=== PATIENT | female | born 2005 | race Two or more races ===

== ENCOUNTER 2025-03-07 15:39 | Observation (INO) ==
--- NOTE | 2025-03-07 16:33 | Emergency Department Note ---
Impression & Plan Lumbar radiculopathy, Weakness of both lower extremities, Bulging of lumbar intervertebral disc ED Provider Note CHIEF COMPLAINT: Back pain HISTORY OF PRESENTING ILLNESS: This 20-year-old female patient presents to the emergency department for evaluation of low back pain radiating to her bilateral legs. The pain is worse in the left leg. She has a history of this chronically, but states that has been worse over the past week. Today she had an episode that caused such bad muscle spasm that she was unable to move her legs at all for 2 hrs. She is able to move her legs again, but still very painful and her legs still feel weak. She denies any injury or trauma. She has a history of sciatica and her left leg is shorter than the right, but no recent imaging. She took 4 ibuprofen at 8 AM this morning without improvement of her symptoms. Denies any loss of control of their bowel or bladder functions. Denies any numbness of their legs, but has had a lot of intermittent tingling. Denies any saddle paresthesias. Denies abdominal pain, nausea, or vomiting. Denies urinary symptoms or changes in their BMs. LMP 3 weeks ago. She denies concern for . REVIEW OF SYSTEMS: See HPI for pertinent positives and pertinent negatives. ALLERGIES: Blue dye from Leach-Hoffman cereal MEDICATIONS: Metformin, Hydroxyzine prn PAST MEDICAL HISTORY: Insomnia PHYSICAL EXAM: VITALS: Vitals are noted on the nurse's note and reviewed by myself. GENERAL: Appears in pain, but non toxic in appearance and in no acute distress. Non-diaphoretic. SKIN: The skin of the back was without obvious rashes, erythema, edema, pilonidal abscess, or bruising. HEAD: Normocephalic atraumatic. EYES: Pupils equal round and reactive to light and accommodation. The Extraocular movements intact. NECK: Supple without nuchal rigidity. No cervical spine tenderness. No paraspinous muscle tenderness. No lymphadenopathy. HEART: Regular rate and rhythm without murmurs gallops or rubs. LUNGS: Clear to auscultation bilaterally without wheezes, rales or rhonchi. ABDOMEN: Positive bowel sounds x 4. Normal tympanic percussion. Soft, nontender, without masses or organomegaly. Gamble sign negative. MUSCULOSKELETAL: There is tenderness over the lumbar spinous processes. There is also tenderness over the paraspinous muscles bilaterally. There is no tenderness over the thoracic spine or paraspinous muscles. There are muscle spasms present. The patient is slow to move around with maximum tenderness with flexion of the spine. Positive straight leg raise test L>R. The patient has trouble moving both of her legs due to pain, but worse on the left. Strength 3/5 on the left and 4/5 on the right. Repeat exam after the pain medication, steroids, and Valium showed an improvement in her strength to 4/5 on the left and 5/5 on the right. Deep tendon reflexes 2+ in the lower extremities. Dorsalis pedis and posterior tibial pulse 2+ and equal bilaterally. NEURO: Patient was alert and oriented to person place and time. Decreased sensation to light and sharp touch of the left lower extremity compared to the right per patient, but she is able to feel light and sharp touch. No focal neurological deficits. DIFFERENTIAL DIAGNOSIS: Differential diagnosis includes fracture, subluxation, cauda equina syndrome, cord compression, disc herniation, muscle spasm, lumbar strain, epidural abscess, discitis, malignancy, transverse myelitis, urinary tract infection, colitis, diverticulitis, kidney stone, among others. ED COURSE AND MEDICAL DECISION MAKING: MEDICATIONS GIVEN: Toradol 15 mg IM, Valium 5 mg IM, Decadron 10 mg IM. Tylenol 1000 mg IV. Normal saline solution at 125 mL an hour. INTERPRETATION OF LABS: I interpreted the labs with full lab results as below in the lab section of this note. Laboratory results pertinent to the emergent complaint are discussed in the MDM section below. The patient was advised to follow up with their PCP and/or specialist(s) for further outpatient monitoring and management of any abnormal results. INTERPRETATION OF IMAGING: Imaging studies were interpreted by myself and read by radiology as per the imaging section of this note. The patient was advised to follow up with their PCP and/or specialist(s) for further outpatient management of any non-emergent abnormal findings. CT scan of the lumbar spine without contrast shows no acute fracture or subluxation. There is spinal stenosis at L4/5 and L5/S1 with disc herniations that may compress the traversing nerve roots. MRI of the lumbar spine without contrast showed: 1. Moderate disc degeneration at L4-5 and L5-S1 with disc extrusion or disc bulge causing a moderate right and mild left subarticular recess stenosis at L4-5 and a mild right and moderate left subarticular recess stenosis L5-S1 with mild impingement of the transiting right L5 and left S1 nerve roots respectively. 2. There is a severe spinal canal stenosis at L4-5. 3. There is a mild right L5-S1 foraminal stenosis without evidence of neural impingement. 4. No evidence of fracture, infection, tumor or arachnoiditis. CONSULTATIONS: Dr. Flores of spinal surgery. On-call hospitalist MDM SUMMARY: I examined the patient. The patient has a history of chronic low back pain, but symptoms became significantly worse over the past week. Today she had an episode where she could not move her legs at all for 2 hours. She is still weak in her left greater than right leg, but starting to improve. No loss of control of her bowel or bladder functions. Intermittent tingling, but denies true numbness. No direct injury or trauma to the back. On exam, the patient did have weakness of the left leg compared to the right and she was having difficulty moving her legs and difficulty standing. She did have sensation to light and sharp touch, but decreased in the left leg compared to the right per patient. Reflexes were still present. Pulses were normal. The patient was given Toradol 15 mg IM and Valium 5 mg IM with some improvement of her symptoms. CT scan of the lumbar spine without contrast shows no acute fracture or subluxation. There is spinal stenosis at L4/5 and L5/S1 with disc herniations that may compress the traversing nerve roots. The patient's weakness in her legs had improved somewhat, but she was still weak in the left leg and had continued trouble moving her legs and standing without significant difficulty. Based on the patient's subjective history, physical exam, and CT scan findings, an MRI was obtained. The patient was also given Decadron 10 mg IM. MRI of the lumbar spine without contrast showed the significant bulging disks with impingement as above. Given the patient's earlier symptoms today as well as her objective findings on exam, I spoke with Dr. Flores of spinal surgery. He stated that the patient does not require emergent surgery, but may require intervention in the near future. He stated that the patient would benefit from high-dose steroids. He recommended admission for IV steroids if the patient were agreeable. However, if the patient wanted to be discharged home with outpatient follow-up, she would need to be on a high dose steroid taper with short-term follow-up. I spoke with the patient about the findings and recommendations. The patient states that she is still having trouble ambulating and moving her legs and does not know how much help she would have at home. The patient would like to be admitted for the IV steroids, PT evaluation, and spinal surgical evaluation. An IV lock was placed and labs were drawn due to the patient's admission. The patient was given Tylenol 1000 mg IV for some additional pain, but she declined any stronger pain medication at this time. She was started on maintenance fluids as well. White blood cell count was elevated at 12.74. This may be secondary to the steroids and pain, but can be monitored closely during admission. Hemoglobin and platelet count were normal. Glucose 125, but CMP otherwise without concerning abnormalities. I spoke with the on-call hospitalist who agreed to admit the patient for further evaluation and treatment. Please refer to their dictation for further details. The patient's care was transferred in stable condition. DIAGNOSIS: Lumbar radiculopathy Weakness of the bilateral lower extremities Lumbar bulging disks Past Med/Surg History Problem List (Updated 03/08/25 @ 02:03 by Lorie Mccord DO) Bulging lumbar disc Acute on chronic back pain Postural imbalance Low back pain with left-sided sciatica Leg length discrepancy Left femur measures 52 cm, right femur measures 53.2 cm Auditory hallucinations Medical History Vitamin D deficiency Panic attacks Lipoprotein deficiency HDL low in May 2019 Hypertriglyceridemia Animal dander allergy BMI (body mass index), pediatric, greater than 99% for age Elevated fasting insulin level with normal glucose Lumbar back pain with radiculopathy affecting right lower extremity Surgical History No history of previous surgery Family History Father Heart disease Myocardial infarction Mother Anxiety Diabetes type 2 DM Family/Other Heart disease Cousin, passed at age 33 Denies family history of Ovarian cancer Prostate cancer Breast cancer Colorectal cancer Social History Smoking Status: Never smoker Second Hand Exposure: No; Do You Dip or Chew Tobacco: No; Hx Alcohol Use: No Hx Substance Use: No Preferred Language: Polish Communication Ability: Effective Visual Impairment: No Limitations Hearing Ability: Normal Housing Installer Required: No marital status: Single Current Living Situation: Alone current occupational status: employed current occupation: [employer] Feels Safe at Home: Yes Childhood Exposure to Second-Hand Smoke: No Diet: vegetarian Dental Care, Regularly: Yes Physical Activity Frequency: 1-2 Times per Week Seatbelt Use: always Sunscreen Use: Yes Assistive Devices: Contacts and Glasses Allergies Allergies Allergy/AdvReac Type Severity Reaction Status Date / Time blue dye Allergy Severe Anaphylaxis Verified 03/08/25 00:41 LEACH-HOFFMAN CEREAL Allergy Severe Anaphylaxis Uncoded 03/08/25 00:41 Home Meds Home Medications Medication Instructions Recorded Confirmed multivitamin 1 tab PO DAILY 01/10/23 03/08/25 Lactobacillus acidophilus 10 10,000 mmu cells PO DAILY 03/08/25 03/08/25 billion cell capsule (Probiotic) biotin 10 mg tablet 10 mg PO DAILY 03/08/25 03/08/25 hydroxyzine HCl 25 mg tablet 25 mg PO HS PRN Insomnia 03/08/25 03/08/25 lysine 500 mg tablet (L-Lysine) 500 mg PO DAILY 03/08/25 03/08/25 metformin 500 mg tablet 500 mg PO DAILY 03/08/25 03/08/25 Previous Rx's Medication Instructions Recorded L Heel lift #3 ea 07/19/20 Results & Data (ED) Vital Signs Vital Signs - 24 hr 03/07/25 15:47 03/07/25 18:50 03/08/25 00:34 Temperature 36.6 C Temperature Source Temporal Artery Scan Pulse Rate 78 Pulse Rate [Finger] 67 72 Respiratory Rate 20 21 19 Respiratory Effort / Characteristics Non-Labored Spontaneous Respiratory Depth Normal Respiratory Pattern Regular Blood Pressure 127/84 Blood Pressure [Right Arm] 107/67 110/76 Blood Pressure Mean 98 Blood Pressure Mean [Right Arm] 80 87 Pulse Oximetry 97 97 97 Oxygen Delivery Method Room Air Room Air Room Air Sepsis Recent Fever Within 48 Hours No Sepsis New/Unexplained Change in Mental Status N/A Sepsis Action Taken by Nursing No Action Required Laboratory Data 03/08/25 00:43 03/08/25 00:43 Lab Results 03/08/25 Range/Units 00:43 WBC 12.74 H (4.8-10.8) K/ul RBC 4.50 (4.20-5.40) M/uL Hgb 12.8 (12.0-16.0) g/dl Hct 38.2 (37.0-47.0) % MCV 84.9 (80.0-100.0) fL MCH 28.4 (25.0-34.0) pg MCHC 33.5 (32.0-36.0) g/dL RDW Std Deviation 42.5 (36.4-46.3) fL RDW Coeff of Bull 13.7 (11.5-14.5) % Plt Count 320 (130-400) K/uL MPV 11.4 (9.4-12.4) fL Immature Gran % (Auto) 0.5 % Neut % (Auto) 88.4 % Lymph % (Auto) 10.4 % Larue % (Auto) 0.5 % Eos % (Auto) 0.0 % Baso % (Auto) 0.2 % Neut # (Auto) 11.26 H (1.40-6.50) K/uL Lymph # (Auto) 1.33 (1.20-3.40) K/uL Larue # (Auto) 0.06 L (0.11-0.59) K/uL Eos # (Auto) 0.00 (0.00-0.50) K/uL Baso # (Auto) 0.03 (0.00-0.20) K/uL Immature Gran # (Auto) 0.06 (0.01-0.20) K/uL Sodium 137 (136-145) mmol/L Potassium 4.1 (3.5-5.1) mmol/L Chloride 107 (98-107) mmol/L Carbon Dioxide 19 L (21-32) mmol/L Anion Gap 11 (3-11) BUN 10 (6-23) mg/dl Creatinine 0.72 (0.6-1.2) mg/dl Est Cr Clr Drug Dosing Not Reportable eGFR 121.16 BUN/Creatinine Ratio 13.9 (10-20) Glucose 125 H (70-99(Fasting)) mg/dl Calcium 9.0 (8.6-10.3) mg/dl Total Bilirubin 0.4 (0.2-1.0) mg/dl AST 14 (13-39) U/L ALT 19 (7-52) U/L Alkaline Phosphatase 94 (34-104) U/L Total Protein 7.6 (6.0-8.3) gm/dl Albumin 4.3 (3.4-5.0) gm/dl Globulin 3.3 (2.5-4.0) gm/dl Albumin/Globulin Ratio 1.3 (0.9-2) Administered Medications Sodium Chloride (Nss) 1,000 mls @ 125 mls/hr IV .Q8H RIN Stop: 03/11/25 00:44 Last Admin: 03/08/25 00:47 Dose: 125 mls/hr Documented By: ASW Discontinued Medications Dexamethasone Sodium Phosphate (DexamethasonePf 10 Mg/Ml Vial) 10 mg IM NOW ONE Stop: 03/07/25 18:26 Last Admin: 03/07/25 18:32 Dose: 10 mg Documented By: KATIE Diazepam (Diazepam 5 Mg/Ml 10ml Vial) 5 mg IM NOW STA Stop: 03/07/25 16:54 Last Admin: 03/07/25 17:03 Dose: 5 mg Documented By: KATIE Acetaminophen (Ofirmev) 1,000 mg in 100 mls @ 400 mls/hr IV NOW STA Stop: 03/08/25 00:52 Last Infusion: 03/08/25 01:11 Dose: Infused Documented By: Admin: 03/08/25 00:47 Dose: 400 mls/hr Documented By: JOSHUA Ketorolac Tromethamine (Ketorolac Tromethamine 15 Mg/Ml Vial) 15 mg IM NOW STA Stop: 03/07/25 16:54 Last Admin: 03/07/25 17:03 Dose: 15 mg Documented By: KATIE Imaging Data Radiologist's Impression: Lumbar Spine CT 03/07/25 16:53 Clinical history: Pain Technique: Axial computed tomography images were obtained of the lumbar spine without intravenous contrast. Sagittal and coronal reconstructions were obtained Findings: No fracture is identified. No listhesis is seen. No focal osseous lesion is evident. There is no definite sign of osteomyelitis At L1-2, no disc herniation is identified. There is no spinal stenosis. The neural foramen are patent At L2-3, no disc herniation is identified. There is no spinal stenosis. The neural foramen are patent At L3-4, there is a mild disc bulge. There is no spinal stenosis. The neural foramen are patent At L4-5, there is severe spinal stenosis due to a disc bulge and a central disc herniation. There is mild left neural foramen narrowing At L5-S1, there is spinal stenosis due to a disc bulge and a central disc herniation. There is mild left neural foramen narrowing The visualized soft tissues of the abdomen and pelvis appear unremarkable Impression: 1. No definite lumbar spine fracture 2. Spinal stenosis at L4-5 and L5-S1 with disc herniations that may compress the traversing nerve roots Electronically signed by Christiano Fonseca 03-07-2025 5:43 PM Lumbar Spine MRI 03/07/25 18:25 Exam(s): MRI L SPINE Without Contrast EXAM: MR Lumbar Spine Without Intravenous Contrast CLINICAL HISTORY: Reason for exam: Low back pain, weakness/numbness L>R legs, abn CT. TECHNIQUE: Magnetic resonance images of the lumbar spine without intravenous contrast in multiple planes. COMPARISON: Prior CT scan of lumbar spine from March 07, 2025. FINDINGS: Vertebrae: There are 5 lumbar type vertebral bodies with a mild levoscoliosis and shallow lumbar lordosis. There is no vertebral body height and alignment. The bone marrow signal is heterogeneous with reactive endplate changes. No acute fracture. Spinal cord: The conus is normal size, shape and signal characteristics, terminating at T12-L1. Soft tissues: Moderate atrophy of the iliopsoas, paraspinous or spinous musculature. The aorta and IVC flow voids are intact. The visualized kidneys are unremarkable. DISCS/SPINAL CANAL/NEURAL FORAMINA: L1-L2: Unremarkable. No significant disc disease. No stenosis. L2-L3: Unremarkable. No significant disc disease. No stenosis. L3-L4: Unremarkable. No significant disc disease. No stenosis. L4-L5: Moderate disc degeneration with right paracentral caudally dissecting disc extrusion measuring 9.9 mm (CC) by 11.4 mm (mL) by 5.7 mm (AP) causing moderate right and mild left subarticular recess stenosis with mild impingement of the transiting right L5 nerve root and the severe spinal stenosis with thecal sac area measuring 0.4 cm². L5-S1: Moderate disc degeneration with annular disc bulge causing mild right and moderate left subarticular recess stenosis with mild impingement of the transiting left S1 nerve. There is disc and osteophyte extend to the neuroforamina causing a mild right stenosis without evidence of impingement. IMPRESSION: 1. Moderate disc degeneration at L4-5 and L5-S1 with disc extrusion or disc bulge causing a moderate right and mild left subarticular recess stenosis at L4-5 and a mild right and moderate left subarticular recess stenosis L5-S1 with mild impingement of the transiting right L5 and left S1 nerve roots respectively. 2. There is a severe spinal canal stenosis at L4-5. 3. There is a mild right L5-S1 foraminal stenosis without evidence of neural impingement. 4. No evidence of fracture, infection, tumor or arachnoiditis. Electronically signed by: Erlinda Jerome MD 03/07/25 22:46 PM Discharge Plan Visit Data Chief Complaint: Back Injury/Pain Stated Complaint: BACK PAIN/INJURY, ON/OFF PARALYSIS ED Provider: Malika Ferguson ED Midlevel Provider: Yadi Skinner Discharge Problem: Lumbar radiculopathy, Weakness of both lower extremities, Bulging of lumbar intervertebral disc Patient Disposition: Admitted As Inpatient Condition: Fair Discharge Instructions Interventions: ED Discharge Assessment Last Done: 03/08/25 01:56 Forms Stand Alone Forms: [facility], Important Visit Information Prescriptions Prescriptions: No Action (DME) L Heel lift see below See Rx Instructions .Route .MEDSUPPLY Qty: 3 0RF Rx Instructions: Dispense one 6mm heel lift, one 8mm heel lift, one 1cm heel lift Wear 6mm lift x2-3 wks, then 8mm x2wks, then 10 mm. multivitamin Tablet 1 tab PO DAILY biotin 10 mg Tablet 10 mg PO DAILY metformin 500 mg tablet 500 mg PO DAILY hydroxyzine HCl 25 mg tablet 25 mg PO HS PRN (Reason: Insomnia) lysine [L-Lysine] 500 mg Tablet 500 mg PO DAILY Probiotic 10 billion cell Capsule 10,000 mmu cells PO DAILY Referrals Referrals: Deandre Warren, [Primary Care Provider] -
[2025-03-07] MEDS: KETOROLAC TROMETHAMINE 15 MG/ML VIAL IM STA (17:03)
[2025-03-07] MEDS: diazePAM 5 MG/ML 10ML VIAL IM STA (17:03)
--- NOTE | 2025-03-07 17:43 | CT Scan Report ---
Clinical history: Pain Technique: Axial computed tomography images were obtained of the lumbar spine without intravenous contrast. Sagittal and coronal reconstructions were obtained Findings: No fracture is identified. No listhesis is seen. No focal osseous lesion is evident. There is no definite sign of osteomyelitis At L1-2, no disc herniation is identified. There is no spinal stenosis. The neural foramen are patent At L2-3, no disc herniation is identified. There is no spinal stenosis. The neural foramen are patent At L3-4, there is a mild disc bulge. There is no spinal stenosis. The neural foramen are patent At L4-5, there is severe spinal stenosis due to a disc bulge and a central disc herniation. There is mild left neural foramen narrowing At L5-S1, there is spinal stenosis due to a disc bulge and a central disc herniation. There is mild left neural foramen narrowing The visualized soft tissues of the abdomen and pelvis appear unremarkable Impression: 1. No definite lumbar spine fracture 2. Spinal stenosis at L4-5 and L5-S1 with disc herniations that may compress the traversing nerve roots Electronically signed by Christiano Fonseca 03-07-2025 5:43 PM
[2025-03-07] MEDS: dexAMETHasone**PF** 10 MG/ML VIAL IM ONE (18:32)
--- NOTE | 2025-03-07 22:47 | Magnetic Resonance Report ---
Exam(s): MRI L SPINE Without Contrast EXAM: MR Lumbar Spine Without Intravenous Contrast CLINICAL HISTORY: Reason for exam: Low back pain, weakness/numbness L>R legs, abn CT. TECHNIQUE: Magnetic resonance images of the lumbar spine without intravenous contrast in multiple planes. COMPARISON: Prior CT scan of lumbar spine from March 07, 2025. FINDINGS: Vertebrae: There are 5 lumbar type vertebral bodies with a mild levoscoliosis and shallow lumbar lordosis. There is no vertebral body height and alignment. The bone marrow signal is heterogeneous with reactive endplate changes. No acute fracture. Spinal cord: The conus is normal size, shape and signal characteristics, terminating at T12-L1. Soft tissues: Moderate atrophy of the iliopsoas, paraspinous or spinous musculature. The aorta and IVC flow voids are intact. The visualized kidneys are unremarkable. DISCS/SPINAL CANAL/NEURAL FORAMINA: L1-L2: Unremarkable. No significant disc disease. No stenosis. L2-L3: Unremarkable. No significant disc disease. No stenosis. L3-L4: Unremarkable. No significant disc disease. No stenosis. L4-L5: Moderate disc degeneration with right paracentral caudally dissecting disc extrusion measuring 9.9 mm (CC) by 11.4 mm (mL) by 5.7 mm (AP) causing moderate right and mild left subarticular recess stenosis with mild impingement of the transiting right L5 nerve root and the severe spinal stenosis with thecal sac area measuring 0.4 cm². L5-S1: Moderate disc degeneration with annular disc bulge causing mild right and moderate left subarticular recess stenosis with mild impingement of the transiting left S1 nerve. There is disc and osteophyte extend to the neuroforamina causing a mild right stenosis without evidence of impingement. IMPRESSION: 1. Moderate disc degeneration at L4-5 and L5-S1 with disc extrusion or disc bulge causing a moderate right and mild left subarticular recess stenosis at L4-5 and a mild right and moderate left subarticular recess stenosis L5-S1 with mild impingement of the transiting right L5 and left S1 nerve roots respectively. 2. There is a severe spinal canal stenosis at L4-5. 3. There is a mild right L5-S1 foraminal stenosis without evidence of neural impingement. 4. No evidence of fracture, infection, tumor or arachnoiditis. Electronically signed by: Erlinda Jerome MD 03/07/25 22:46 PM
[2025-03-08] MEDS: SODIUM CHLORIDE 0.9% 1,000 ML IV SCH (00:47)
[2025-03-08] MEDS: ACETAMINOPHEN 1,000 MG/100 ML VIAL IV STA (00:47)
[2025-03-08 00:59] LABS: Hematocrit (blood only) 38.2 % (37.0-47.0); Hemoglobin 12.8 g/dl (12.0-16.0); Immature Granulocytes # (auto) 0.06 K/uL (0.01-0.20); Immature Granulocytes % (auto) 0.5 %; Mean Corpuscular Hemoglobin 28.4 pg (25.0-34.0); Mean Corpuscular Volume 84.9 fL (80.0-100.0); Platelet Count 320 K/uL (130-400); RDW Standard Deviation 42.5 fL (36.4-46.3); Red Blood Count 4.50 M/uL (4.20-5.40); White Blood Count 12.74 K/ul (4.8-10.8)
--- NOTE | 2025-03-08 01:00 | History & Physical Report ---
Date of Service March 08, 2025 Assessment & Plan (1) Acute on chronic back pain: (2) Bulging lumbar disc: Plan 20yo female with history of chronic low back pain presenting with one week of worsening pain and bilateral LE weakness. Found with moderate disc degeneration at L4-L5 and L5-S1 with disc extrusion causing stenosis. #Acute on chronic low back pain with bulging lumbar discs with nerve root impingement -Observation to medical -Tylenol 1gm po TID -Toradol 15mg IV q 6 hours PRN -Heat -Flexeril 5mg po TID -Dexamethasone 10mg IV daily - patient with elevated glucose, would try to limit lifetime/cumulative exposure to steroids as able -Bladder scan with straight cath as needed for retention -Bowel regimen PRN -Pepcid 10mg po daily for now while on steroids, Toradol -PT/OT evaluations appreciated -Ortho-Spine consultation appreciated History of Present Illness Chief Complaint: acute on chronic back pain Primary Care Provider: Deandre Warren DO Laura Keller is a pleasant 20yo female with history of chronic lumbar back pain presenting with acute on chronic back pain. Patient reports over the last week she has had progressive worsening of her lumbar pain - pain radiates down her posterior legs bilaterally. She has also had progressive weakness of her bilateral LE. No fever, chills, falls or trauma. No bowel or bladder complaints. No additional complaints at this time -patient denies fever, chills, chest pain, cough, SOB, abdominal pain, nausea, vomiting, diarrhea ER Course: NSS x 1L Tylenol 1gm Dexamethasone 10mg IV Valium 5mg IV Toradol 15mg IV Allergies Allergy/AdvReac Type Severity Reaction Status Date / Time blue dye Allergy Severe Anaphylaxis Verified 03/08/25 00:41 BELL-CONTRERAS CEREAL Allergy Severe Anaphylaxis Uncoded 03/08/25 00:41 Home Medications Medication Instructions Recorded Confirmed Type L Heel lift #3 ea 07/19/20 05/10/23 Rx multivitamin 1 tab PO DAILY 01/10/23 03/08/25 History Lactobacillus acidophilus 10 10,000 mmu cells PO DAILY 03/08/25 03/08/25 History billion cell capsule (Probiotic) biotin 10 mg tablet 10 mg PO DAILY 03/08/25 03/08/25 History hydroxyzine HCl 25 mg tablet 25 mg PO HS PRN Insomnia 03/08/25 03/08/25 History lysine 500 mg tablet (L-Lysine) 500 mg PO DAILY 03/08/25 03/08/25 History metformin 500 mg tablet 500 mg PO DAILY 03/08/25 03/08/25 History Past Med/Surg History Problem List (Updated 03/08/25 @ 02:03 by Lorie Mccord DO) Bulging lumbar disc Acute on chronic back pain Postural imbalance Low back pain with left-sided sciatica Leg length discrepancy Left femur measures 52 cm, right femur measures 53.2 cm Auditory hallucinations Medical History Vitamin D deficiency Panic attacks Lipoprotein deficiency HDL low in May 2019 Hypertriglyceridemia Animal dander allergy BMI (body mass index), pediatric, greater than 99% for age Elevated fasting insulin level with normal glucose Lumbar back pain with radiculopathy affecting right lower extremity Surgical History No history of previous surgery Family History Father Heart disease Myocardial infarction Mother Anxiety Diabetes type 2 DM Family/Other Heart disease Cousin, passed at age 33 Denies family history of Ovarian cancer Prostate cancer Breast cancer Colorectal cancer Social History Smoking Status: Never smoker Second Hand Exposure: No; Do You Dip or Chew Tobacco: No; Hx Alcohol Use: No Hx Substance Use: No Preferred Language: Ivorian Communication Ability: Effective Visual Impairment: No Limitations Hearing Ability: Normal Injection Wax Molder Required: No marital status: Single Current Living Situation: Alone current occupational status: employed current occupation: [employer] Feels Safe at Home: Yes Childhood Exposure to Second-Hand Smoke: No Diet: vegetarian Dental Care, Regularly: Yes Physical Activity Frequency: 1-2 Times per Week Seatbelt Use: always Sunscreen Use: Yes Assistive Devices: Contacts and Glasses Review of Systems Review of Systems: All systems reviewed & are unremarkable except as noted in HPI & below Physical Exam Physical Exam: General: patient resting comfortably, NAD, non-toxic in appearance, AA&O x 4 Skin: warm, dry, intact, no rashes or lesions HEENT: NC/AT, PERRL, EOMI, anicteric sclera, conjunctiva without injection, external ear normal to inspection and nontender, nares patent, moist mucus membranes, dentition intact, no oropharyngeal lesions, neck supple, trachea midline, no LAD, no thyromegaly, no JVD Heart: +S1/S2, regular, no m/r/g Lungs: equal air entry bilaterally, no rales/rhonchi/wheezes Abd: +BS, soft, NT/ND, no masses/organomegaly/ascites Ext: warm, 2+ pulses in UE/LE bilaterally, no clubbing/cyanosis or edema Neuro: weakness of bilateral LE 3+/5 strength, reflexes intact Results & Data Results & Data Vital Signs (Past 12 Hours) Vital Signs Temp Pulse Pulse Resp BP BP Pulse Ox 03/08/25 00:34 72 19 110/76 97 03/07/25 18:50 67 21 107/67 97 03/07/25 15:47 36.6 C 78 20 127/84 97 O2 Del Method 03/08/25 00:34 Room Air 03/07/25 18:50 Room Air 03/07/25 15:47 Room Air Laboratory Results Laboratory Results WBC 12.74 K/ul (4.8-10.8) H 03/08/25 00:43 RBC 4.50 M/uL (4.20-5.40) 03/08/25 00:43 Hgb 12.8 g/dl (12.0-16.0) 03/08/25 00:43 Hct 38.2 % (37.0-47.0) 03/08/25 00:43 MCV 84.9 fL (80.0-100.0) 03/08/25 00:43 MCH 28.4 pg (25.0-34.0) 03/08/25 00:43 MCHC 33.5 g/dL (32.0-36.0) 03/08/25 00:43 RDW Std Deviation 42.5 fL (36.4-46.3) 03/08/25 00:43 RDW Coeff of Bull 13.7 % (11.5-14.5) 03/08/25 00:43 Plt Count 320 K/uL (130-400) 03/08/25 00:43 MPV 11.4 fL (9.4-12.4) 03/08/25 00:43 Immature Gran % (Auto) 0.5 % 03/08/25 00:43 Neut % (Auto) 88.4 % 03/08/25 00:43 Lymph % (Auto) 10.4 % 03/08/25 00:43 [place] % (Auto) 0.5 % 03/08/25 00:43 Eos % (Auto) 0.0 % 03/08/25 00:43 Baso % (Auto) 0.2 % 03/08/25 00:43 Neut # (Auto) 11.26 K/uL (1.40-6.50) H 03/08/25 00:43 Lymph # (Auto) 1.33 K/uL (1.20-3.40) 03/08/25 00:43 [place] # (Auto) 0.06 K/uL (0.11-0.59) L 03/08/25 00:43 Eos # (Auto) 0.00 K/uL (0.00-0.50) 03/08/25 00:43 Baso # (Auto) 0.03 K/uL (0.00-0.20) 03/08/25 00:43 Immature Gran # (Auto) 0.06 K/uL (0.01-0.20) 03/08/25 00:43 Sodium 137 mmol/L (136-145) 03/08/25 00:43 Potassium 4.1 mmol/L (3.5-5.1) 03/08/25 00:43 Chloride 107 mmol/L (98-107) 03/08/25 00:43 Carbon Dioxide 19 mmol/L (21-32) L 03/08/25 00:43 Anion Gap 11 (3-11) 03/08/25 00:43 BUN 10 mg/dl (6-23) 03/08/25 00:43 Creatinine 0.72 mg/dl (0.6-1.2) 03/08/25 00:43 Est Cr Clr Drug Dosing Not Reportable 03/08/25 00:43 eGFR 121.16 03/08/25 00:43 BUN/Creatinine Ratio 13.9 (10-20) 03/08/25 00:43 Glucose 125 mg/dl (70-99(Fasting)) H 03/08/25 00:43 Calcium 9.0 mg/dl (8.6-10.3) 03/08/25 00:43 Total Bilirubin 0.4 mg/dl (0.2-1.0) 03/08/25 00:43 AST 14 U/L (13-39) 03/08/25 00:43 ALT 19 U/L (7-52) 03/08/25 00:43 Alkaline Phosphatase 94 U/L (34-104) 03/08/25 00:43 Total Protein 7.6 gm/dl (6.0-8.3) 03/08/25 00:43 Albumin 4.3 gm/dl (3.4-5.0) 03/08/25 00:43 Globulin 3.3 gm/dl (2.5-4.0) 03/08/25 00:43 Albumin/Globulin Ratio 1.3 (0.9-2) 03/08/25 00:[address] 03/07/25 16:53 Clinical history: Pain Technique: Axial computed tomography images were obtained of the lumbar spine without intravenous contrast. Sagittal and coronal reconstructions were obtained Findings: No fracture is identified. No listhesis is seen. No focal osseous lesion is evident. There is no definite sign of osteomyelitis At L1-2, no disc herniation is identified. There is no spinal stenosis. The neural foramen are patent At L2-3, no disc herniation is identified. There is no spinal stenosis. The neural foramen are patent At L3-4, there is a mild disc bulge. There is no spinal stenosis. The neural foramen are patent At L4-5, there is severe spinal stenosis due to a disc bulge and a central disc herniation. There is mild left neural foramen narrowing At L5-S1, there is spinal stenosis due to a disc bulge and a central disc herniation. There is mild left neural foramen narrowing The visualized soft tissues of the abdomen and pelvis appear unremarkable Impression: 1. No definite lumbar spine fracture 2. Spinal stenosis at L4-5 and L5-S1 with disc herniations that may compress the traversing nerve roots Electronically signed by Christiano Fonseca 03-07-2025 5:43 PM Lumbar Spine MRI 03/07/25 18:25 Exam(s): MRI L SPINE Without Contrast EXAM: MR Lumbar Spine Without Intravenous Contrast CLINICAL HISTORY: Reason for exam: Low back pain, weakness/numbness L>R legs, abn CT. TECHNIQUE: Magnetic resonance images of the lumbar spine without intravenous contrast in multiple planes. COMPARISON: Prior CT scan of lumbar spine from March 07, 2025. FINDINGS: Vertebrae: There are 5 lumbar type vertebral bodies with a mild levoscoliosis and shallow lumbar lordosis. There is no vertebral body height and alignment. The bone marrow signal is heterogeneous with reactive endplate changes. No acute fracture. Spinal cord: The conus is normal size, shape and signal characteristics, terminating at T12-L1. Soft tissues: Moderate atrophy of the iliopsoas, paraspinous or spinous musculature. The aorta and IVC flow voids are intact. The visualized kidneys are unremarkable. DISCS/SPINAL CANAL/NEURAL FORAMINA: L1-L2: Unremarkable. No significant disc disease. No stenosis. L2-L3: Unremarkable. No significant disc disease. No stenosis. L3-L4: Unremarkable. No significant disc disease. No stenosis. L4-L5: Moderate disc degeneration with right paracentral caudally dissecting disc extrusion measuring 9.9 mm (CC) by 11.4 mm (mL) by 5.7 mm (AP) causing moderate right and mild left subarticular recess stenosis with mild impingement of the transiting right L5 nerve root and the severe spinal stenosis with thecal sac area measuring 0.4 cm². L5-S1: Moderate disc degeneration with annular disc bulge causing mild right and moderate left subarticular recess stenosis with mild impingement of the transiting left S1 nerve. There is disc and osteophyte extend to the neuroforamina causing a mild right stenosis without evidence of impingement. IMPRESSION: 1. Moderate disc degeneration at L4-5 and L5-S1 with disc extrusion or disc bulge causing a moderate right and mild left subarticular recess stenosis at L4-5 and a mild right and moderate left subarticular recess stenosis L5-S1 with mild impingement of the transiting right L5 and left S1 nerve roots respectively. 2. There is a severe spinal canal stenosis at L4-5. 3. There is a mild right L5-S1 foraminal stenosis without evidence of neural impingement. 4. No evidence of fracture, infection, tumor or arachnoiditis. Electronically signed by: Erlinda Jerome MD 03/07/25 22:46 PM PG Care Time/CCT Total # of Minutes Spent Total Time Spent with Patient: Total time spent is greater than 50% in coordination of care (as documented) at patient's floor/unit and/or counseling patient: Coding Level of Care Code 60435 INT INP/OBS CARE MIN Diagnoses Acute on chronic back pain M54.9; G89.29 Bulging lumbar disc M51.369
[2025-03-08 01:15] LABS: Alanine Aminotransferase 19 U/L (7-52); Albumin Globulin Ratio 1.3 (0.9-2); Alkaline Phosphatase 94 U/L (34-104); Anion Gap 11 (3-11); Bilirubin,Total 0.4 mg/dl (0.2-1.0); Blood Urea Nitrogen 10 mg/dl (6-23); Calcium 9.0 mg/dl (8.6-10.3); Carbon Dioxide 19 mmol/L (21-32); Chloride 107 mmol/L (98-107); Globulin 3.3 gm/dl (2.5-4.0); Glucose 125 mg/dl (70-99(Fasting)); Potassium 4.1 mmol/L (3.5-5.1); Sodium 137 mmol/L (136-145); Total Protein 7.6 gm/dl (6.0-8.3)
[2025-03-08] MEDS ORDERED: DOCUSATE SODIUM 100 MG CAP PO PRN (02:12)
[2025-03-08] MEDS ORDERED: ONDANSETRON INJ 2 MG/ML 2 ML VIAL IV PRN (02:12)
[2025-03-08] MEDS ORDERED: POLYETHYLENE (MIRALAX) 17 GM PACK PO PRN (02:12)
--- NOTE | 2025-03-08 08:06 | Hospitalist Progress Note ---
Date of Service March 08, 2025 Assessment & Plan (1) Acute on chronic back pain: (2) Bulging lumbar disc: Plan 20yo female with history of chronic low back pain presenting with one week of worsening pain and bilateral LE weakness. Found with moderate disc degeneration at L4-L5 and L5-S1 with disc extrusion causing stenosis. Was given diazepam 5mg, toradol 15mg, dexamethasone 10mg IM x 1 in ER along with 1gm APAP #Acute on chronic low back pain with bulging lumbar discs with nerve root impingement -Observation to medical -Tylenol 1gm po TID -Toradol 15mg IV q 6 hours PRN -Heat -Flexeril 5mg po TID -Dexamethasone 10mg IV daily - patient with elevated glucose, would try to limit lifetime/cumulative exposure to steroids as able -Bladder scan with straight cath as needed for retention -Bowel regimen PRN -Pepcid 10mg po daily for now while on steroids, Toradol -PT/OT evaluations appreciated -Ortho-Spine consultation appreciated - Checking UA for completeness 03/08- reports feeling better w/ medications as ordered, remains with weakness to b/l LE. Reports ongoing x 4 yrs, acutely worsening beginning of this week. 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 Possible urinary sx and will check UA to eval for other causes. Orthospine to see this afternoon but per discussion w/ Dr Flores, likely rec for pain management consult for injection but may need eventual surgery. Pain management consult placed/appreciate recs/assistance. Making colace BID/senna scheduled to prevent constipation. PT/OT consults pending. Admission and Anticipated Discharge Date Admission Date: March 08, 2025 Supervising Physician Co-Signing Physician Notes The patient was not seen by me. The chart was reviewed. Case discussed with FRANCESCO Barajas. Agree with assessment and plan Subjective Bridge note Evaluated this morning, resting in bed. Reports feeling much better than admission. Reports has had pain since about the age of 16 but acutely worsened on Thursday and was unable to walk by Thursday. 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 No pops. No loss of bowel/bladder. Discussed ortho spine consult pending, has not been seen. Possible conservative vs surgery intervention but does remain weak and suspect may need more emergent surgical intervention and will see recs by ortho when available. Passing gas, no BM x 2 days. Bowel regimen to be in place. Some burning/fullness with urination and will check UA to be complete. No recent fever/chills or steroids [employer]. Questions/concerns addressed at this time. Physical Exam 2 Physical Exam: General: patient resting comfortably, NAD, non-toxic in appearance, AA&O x 4 Skin: warm, dry, intact, no rashes or lesions HEENT: NC/AT, PERRL, EOMI, anicteric sclera, conjunctiva without injection, external ear normal to inspection and nontender, nares patent, moist mucus membranes, dentition intact, no oropharyngeal lesions, neck supple, trachea midline, no LAD, no thyromegaly, no JVD Heart: +S1/S2, regular, no m/r/g Lungs: equal air entry bilaterally, no rales/rhonchi/wheezes Abd: +BS, soft, slight distension, slight suprapubic fullness/discomfort, no overt tenderness/guarding/rebound MSK/Neuro: not confused, no slurred speech/facial droop, UE strength equal/intact bilateral LE strength testing with significant weakness, 2-3/5 dorsiflexion/plantar flexion, compartments soft, pulses present Psych: AOx3, cooperative with exam Results & Data Results & Data Vital Signs (Past 12 Hours) Vital Signs Temp Pulse Pulse Resp BP BP Pulse Ox 03/08/25 02:05 36.4 C L 78 18 126/79 95 03/08/25 02:05 36.4 C L 78 18 126/79 95 03/08/25 01:56 71 19 105/67 99 03/08/25 00:34 72 19 110/76 97 O2 Del Method 03/08/25 02:05 Room Air 03/08/25 02:05 Room Air 03/08/25 01:56 Room Air 03/08/25 00:34 Room Air Laboratory Results 03/08/25 08:12 03/08/25 08:12 [id number] Diagnostic Findings Lumbar Spine CT 03/07/25 16:53 Clinical history: Pain Technique: Axial computed tomography images were obtained of the lumbar spine without intravenous contrast. Sagittal and coronal reconstructions were obtained Findings: No fracture is identified. No listhesis is seen. No focal osseous lesion is evident. There is no definite sign of osteomyelitis At L1-2, no disc herniation is identified. There is no spinal stenosis. The neural foramen are patent At L2-3, no disc herniation is identified. There is no spinal stenosis. The neural foramen are patent At L3-4, there is a mild disc bulge. There is no spinal stenosis. The neural foramen are patent At L4-5, there is severe spinal stenosis due to a disc bulge and a central disc herniation. There is mild left neural foramen narrowing At L5-S1, there is spinal stenosis due to a disc bulge and a central disc herniation. There is mild left neural foramen narrowing The visualized soft tissues of the abdomen and pelvis appear unremarkable Impression: 1. No definite lumbar spine fracture 2. Spinal stenosis at L4-5 and L5-S1 with disc herniations that may compress the traversing nerve roots Electronically signed by Christiano Fonseca 03-07-2025 5:43 PM Lumbar Spine MRI 03/07/25 18:25 Exam(s): MRI L SPINE Without Contrast EXAM: MR Lumbar Spine Without Intravenous Contrast CLINICAL HISTORY: Reason for exam: Low back pain, weakness/numbness L>R legs, abn CT. TECHNIQUE: Magnetic resonance images of the lumbar spine without intravenous contrast in multiple planes. COMPARISON: Prior CT scan of lumbar spine from March 07, 2025. FINDINGS: Vertebrae: There are 5 lumbar type vertebral bodies with a mild levoscoliosis and shallow lumbar lordosis. There is no vertebral body height and alignment. The bone marrow signal is heterogeneous with reactive endplate changes. No acute fracture. Spinal cord: The conus is normal size, shape and signal characteristics, terminating at T12-L1. Soft tissues: Moderate atrophy of the iliopsoas, paraspinous or spinous musculature. The aorta and IVC flow voids are intact. The visualized kidneys are unremarkable. DISCS/SPINAL CANAL/NEURAL FORAMINA: L1-L2: Unremarkable. No significant disc disease. No stenosis. L2-L3: Unremarkable. No significant disc disease. No stenosis. L3-L4: Unremarkable. No significant disc disease. No stenosis. L4-L5: Moderate disc degeneration with right paracentral caudally dissecting disc extrusion measuring 9.9 mm (CC) by 11.4 mm (mL) by 5.7 mm (AP) causing moderate right and mild left subarticular recess stenosis with mild impingement of the transiting right L5 nerve root and the severe spinal stenosis with thecal sac area measuring 0.4 cm². L5-S1: Moderate disc degeneration with annular disc bulge causing mild right and moderate left subarticular recess stenosis with mild impingement of the transiting left S1 nerve. There is disc and osteophyte extend to the neuroforamina causing a mild right stenosis without evidence of impingement. IMPRESSION: 1. Moderate disc degeneration at L4-5 and L5-S1 with disc extrusion or disc bulge causing a moderate right and mild left subarticular recess stenosis at L4-5 and a mild right and moderate left subarticular recess stenosis L5-S1 with mild impingement of the transiting right L5 and left S1 nerve roots respectively. 2. There is a severe spinal canal stenosis at L4-5. 3. There is a mild right L5-S1 foraminal stenosis without evidence of neural impingement. 4. No evidence of fracture, infection, tumor or arachnoiditis. Electronically signed by: Erlinda Jerome MD 03/07/25 22:46 PM PG Care Time/CCT Total # of Minutes Spent Total Time Spent with Patient: Total time spent is greater than 50% in coordination of care (as documented) at patient's floor/unit and/or counseling patient: Coding Level of Care Code None Diagnoses Acute on chronic back pain M54.9; G89.29 Bulging lumbar disc M51.369
[2025-03-08 08:28] VITALS: RESP 16
[2025-03-08 08:49] LABS: Hematocrit (blood only) 37.9 % (37.0-47.0); Hemoglobin 12.9 g/dl (12.0-16.0); Mean Corpuscular Hemoglobin 28.5 pg (25.0-34.0); Mean Corpuscular Volume 83.7 fL (80.0-100.0); Platelet Count 326 K/uL (130-400); RDW Standard Deviation 41.9 fL (36.4-46.3); Red Blood Count 4.53 M/uL (4.20-5.40); White Blood Count 12.19 K/ul (4.8-10.8)
[2025-03-08] MEDS: FAMOTIDINE 10 MG TABLET PO SCH (09:00)
[2025-03-08] MEDS ORDERED: DEXAMETHASONE SOD INJ 4 MG/ML VIAL IV SCH (09:00)
[2025-03-08] MEDS: dexAMETHasone 10 MG in SYRINGE 0 ML IV SCH (09:03)
[2025-03-08] MEDS: CYCLOBENZAPRINE HCL 5 MG TAB PO SCH (09:03)
[2025-03-08] MEDS: ACETAMINOPHEN 500 MG TAB PO SCH (09:06)
[2025-03-08 09:09] LABS: Anion Gap 9.0 (3-11); Blood Urea Nitrogen 9.0 mg/dl (6-23); Calcium 8.8 mg/dl (8.6-10.3); Carbon Dioxide 19.0 mmol/L (21-32); Chloride 110.0 mmol/L (98-107); Creatinine Clr Calc Pharmacy 207.3 ml/min; Glucose 116.0 mg/dl (70-99(Fasting)); Potassium 4.1 mmol/L (3.5-5.1); Sodium 138.0 mmol/L (136-145)
[2025-03-08 09:21] LABS: Magnesium 2.0 mg/dl (1.7-2.4)
[2025-03-08] MEDS: POLYETHYLENE (MIRALAX) 17 GM PACK PO SCH (11:16)
[2025-03-08 11:18] LABS: Appearance Urine Clear (Clear); Bacteria Urine Automated None Seen (None Seen); Cast Urine Automated 0-2 /lpf (0-2); Epithelial Cell Urine Auto 0-2 /hpf (0-2); Glucose Urine UA Negative (Negative); RBC Urine Automated 0-2 /hpf (0-2); WBC Urine Automated 0-5 /hpf (0-5)
[2025-03-08 14:13] VITALS: TEMP 97.9
--- NOTE | 2025-03-08 16:31 | Orthopedic Consultation ---
Date of Service March 08, 2025 Assessment & Plan (1) Acute on chronic back pain: (2) Lumbar disc herniation with radiculopathy: History of Present Illness Reason for Consultation: Low back and bilateral lower extremity radiculopathy. Requesting Physician: . Attending Physician: Heraclio Edgar MD 20-year-old female patient presents to the emergency department on March 07 for evaluation of low back pain radiating to her bilateral legs, worse in the left leg. She has a history of this chronically, but states that has been worse over the past week. She is able to move her legs again, but still very painful and her legs still feel weak. She denies any injury or trauma. She has a history of sciatica and her left leg is shorter than the right, but no recent imaging. She took 4 ibuprofen at 8 AM this morning without improvement of her symptoms. Denies any loss of control of their bowel or bladder functions. Denies any numb ness of their legs, but has had a lot of intermittent tingling. Denies any saddle paresthesias. Denies abdominal pain, nausea, or vomiting. Denies urinary symptoms or changes in their BMs. Patient notes main issue is the low back pain but she also gets numbness and tingling radiating to the lateral thighs right greater than left, feels her right leg is slightly weaker than on the left leg. She notes that since being admitted and undergoing some medication treatment she has improved from about an 8 out of 10 to now in the range of 5 out of 10. Exam reveals the patient to have pain indicated lumbosacral junction region. She has trace to 1 symmetric knee reflexes absent ankle reflexes. Left lower extremity reveals what I thought was at least grade 4+ to 5 EHL and ankle dorsiflexion, plantarflexion, knee extension is to about -20 degrees with appropriate strength but low back pain on attempted full extension. Right leg demonstrates 4 out of 5 EHL and ankle dorsiflexion, same with knee extension with straight leg raise being positive at around -30 mostly for back pain but some thigh symptoms. MR Lumbar Spine Without Intravenous Contrast 03/07/25 CLINICAL HISTORY: Reason for exam: Low back pain, weakness/numbness L>R legs, abn CT. COMPARISON:Prior CT scan of lumbar spine from March 07, 2025. FINDINGS: Vertebrae: There are 5 lumbar type vertebral bodies with a mild levoscoliosis and shallow lumbar lordosis. There is no vertebral body height and alignment. The bone marrow signal is heterogeneous with reactive endplate changes. No acute fracture. Spinal cord: The conus is normal size, shape and signal characteristics, terminating at T12-L1. Soft tissues: Moderate atrophy of the iliopsoas, paraspinous or spinous musculature. The aorta and IVC flow voids are intact. The visualized kidneys are unremarkable. DISCS/SPINAL CANAL/NEURAL FORAMINA: L1-L2: Unremarkable. No significant disc disease. No stenosis. L2-L3: Unremarkable. No significant disc disease. No stenosis. L3-L4: Unremarkable. No significant disc disease. No stenosis. L4-L5: Moderate disc degeneration with right paracentral caudally dissecting disc extrusion measuring 9.9 mm (CC) by 11.4 mm (mL) by 5.7 mm (AP) causing moderate right and mild left subarticular recess stenosis with mild impingement of the transiting right L5 nerve root and the severe spinal stenosis with thecal sac area measuring 0.4 cm². L5-S1: Moderate disc degeneration with annular disc bulge causing mild right and moderate left subarticular recess stenosis with mild impingement of the transiting left S1 nerve. There is disc and osteophyte extend to the neuroforamina causing a mild right stenosis without evidence of impingement. IMPRESSION: 1. Moderate disc degeneration at L4-5 and L5-S1 with disc extrusion or disc bulge causing a moderate right and mild left subarticular recess stenosis at L4- 5 and a mild right and moderate left subarticular recess stenosis L5-S1 with mild impingement of the transiting right L5 and left S1 nerve roots respectively. 2. There is a severe spinal canal stenosis at L4-5. 3. There is a mild right L5-S1 foraminal stenosis without evidence of neural impingement. 4. No evidence of fracture, infection, tumor or arachnoiditis. Review of MRI images of the lumbar spine from March 07, 2025, is my separate interpretation, the this reveals the findings to be at L4-5 and L5-S1, there is a central right disc protrusion causing severe stenosis in the lateral recess region, but centrally there is still CSF visualized around the remaining canal, if there is some limited contact with the passing left L5 nerve root there is no foraminal stenosis at this level. At L5-S1 there is a central disc protrusion which has some limited contact with both S1 nerve roots, there is no significant central stenosis or foraminal stenosis. Impression: Low back pain in combination with bilateral lower extremity radicular symptoms right greater than left, combination of disc protrusions at L4-5 which I believe is the newer event, more chronic findings at L5-S1. Plan: Today I discussed with the patient the findings, and I related to her that certainly with the findings on the MRI that would explain the radicular symptoms she is having in her lower extremities and low back pain. I did tell the patient though she would still be appropriate for at least a limited trial of some conservative measures which include medications such as appropriate steroid use appropriate pain medication and spasm medicine if not needed, and physical therapy to mobilize. I related with the findings she is having this could improve to some degree as it has improved since yesterday, other considerations would be for pain management to try an epidural injection at the L4-5 level. I did relay to the patient though that surgical consideration is appropriate in her situation, this would be a discectomy, she is in agreement with the plan to exhaust the conservative measures first but if no improvement we will then consider operative intervention. Allergies Allergy/AdvReac Type Severity Reaction Status Date / Time blue dye Allergy Severe Anaphylaxis Verified 03/08/25 02:26 (paez rodríguez cereal) Home Medications Medication Instructions Recorded Confirmed Type L Heel lift #3 ea 07/19/20 05/10/23 Rx multivitamin 1 tab PO DAILY 01/10/23 03/08/25 History Lactobacillus acidophilus 10 10,000 mmu cells PO DAILY 03/08/25 03/08/25 History billion cell capsule (Probiotic) biotin 10 mg tablet 10 mg PO DAILY 03/08/25 03/08/25 History hydroxyzine HCl 25 mg tablet 25 mg PO HS PRN Insomnia 03/08/25 03/08/25 History lysine 500 mg tablet (L-Lysine) 500 mg PO DAILY 03/08/25 03/08/25 History metformin 500 mg tablet 500 mg PO DAILY 03/08/25 03/08/25 History Past Med/Surg History Problem List (Updated 03/08/25 @ 16:45 by Gabriel Flores MD) Lumbar disc herniation with radiculopathy Bulging lumbar disc Acute on chronic back pain Postural imbalance Low back pain with left-sided sciatica Leg length discrepancy Left femur measures 52 cm, right femur measures 53.2 cm Auditory hallucinations Medical History Vitamin D deficiency Panic attacks Lipoprotein deficiency HDL low in May 2019 Hypertriglyceridemia Animal dander allergy BMI (body mass index), pediatric, greater than 99% for age Elevated fasting insulin level with normal glucose Lumbar back pain with radiculopathy affecting right lower extremity Surgical History No history of previous surgery Family History Father Heart disease Myocardial infarction Mother Anxiety Diabetes type 2 DM Family/Other Heart disease Cousin, passed at age 33 Denies family history of Ovarian cancer Prostate cancer Breast cancer Colorectal cancer Social History Smoking Status: Former smoker Tobacco Type: Cigarettes Second Hand Exposure: No; Do You Dip or Chew Tobacco: No; Hx Alcohol Use: Yes Alcohol type: beer, wine and hard liquor Hx Substance Use: No Preferred Language: [place] Communication Ability: Effective Visual Impairment: No Limitations Hearing Ability: Normal 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 Physical Exam . Results & Data Results & Data Laboratory Results . Diagnostic Findings . PG Care Time/CCT Total # of Minutes Spent Total Time Spent with Patient: Total time spent is greater than 50% in coordination of care (as documented) at patient's floor/unit and/or counseling patient: Coding Level of Care Code 62071 IN/OBS CONSULT LVL 3,45M Diagnoses Acute on chronic back pain M54.9; G89.29 Lumbar disc herniation with radiculopathy M51.16
[2025-03-08] MEDS: KETOROLAC TROMETHAMINE 15 MG/ML VIAL IV PRN (18:36)
[2025-03-08] MEDS: SENNA 8.6 MG TAB PO SCH (21:30)
[2025-03-09 07:10] VITALS: BP 140/90; PULSE 71; O2SAT 96
[2025-03-09 08:34] LABS: Anion Gap 7.0 (3-11); Blood Urea Nitrogen 14.0 mg/dl (6-23); Calcium 8.3 mg/dl (8.6-10.3); Carbon Dioxide 22.0 mmol/L (21-32); Chloride 109.0 mmol/L (98-107); Creatinine Clr Calc Pharmacy 161.6 ml/min; Glucose 95.0 mg/dl (70-99(Fasting)); Potassium 4.1 mmol/L (3.5-5.1); Sodium 138.0 mmol/L (136-145)
--- NOTE | 2025-03-09 09:19 | Orthopedic Progress Note ---
Date of Service March 09, 2025 Assessment & Plan (1) Lumbar disc herniation with radiculopathy: * Continue Current Treatment * Recommend pain control measures, IV steroid muscle relaxer, pain management evaluation for possible TAMMI * Disposition: Home * Daily treatment: Physical Therapy/ Occupational Therapy per protocol * Weight bearing status: WBAT * Pain control * Office/hospital f/u 2 weeks for progress check * Remainder care per primary team * Stable for discharge from ortho standpoint, further planning per primary team Subjective .Active Problems: Acute on chronic back pain, lumbar disc herniation. 20 y/o female with acute on chronic low back pain. Evaluated by Dr. Flores, recommend conservative care the medication and pain management consultation for possible TAMMI. Feels she has improved slightly overnight, improved function and pain levels. Some numbness in the lateral thigh, otherwise denies tingling/numbness of the lower extremities. Denies fever/chills, chest pain/SOB, nausea/vomiting. Otherwise no complaints. Review of Systems All systems reviewed & are unremarkable except as noted in HPI & below. Physical Exam . General: Alert and oriented, no acute distress * Constitutional: well-developed, well-nourished. * Respiratory: Normal respiratory effort, no distress * Gastrointestinal: No tenderness to palpation, no rigidity or guarding. * Skin: No rash or lesion. * Neurologic: Grossly normal * Musculoskeletal: Lumbar spine region without obvious deformity or overlying skin changes. Minimal tenderness of midline lumbar and paraspinals, otherwise no specific tenderness b/l buttock or LE. Lumbar flexion/extension and rotation ROM with minimal pain. AROM b/l hip flexion, knee flexion/extension, ankle flexion/extension intact. Lumbar pain with hip flexion. Sensation intact plantar/dorsal foot. Brisk capillary refill. Results & Data Results & Data Laboratory Results . Diagnostic Findings . PG Care Time/CCT Total # of Minutes Spent Total Time Spent with Patient: Total time spent is greater than 50% in coordination of care (as documented) at patient's floor/unit and/or counseling patient: Coding Level of Care Code 02322 SUB INP/OBS CARE 125MIN Diagnoses Lumbar disc herniation with radiculopathy M51.16
--- NOTE | 2025-03-09 10:11 | Pain Management Consultation ---
Date of Consultation March 09, 2025 Assessment & Plan (1) Lumbar disc herniation with radiculopathy: (2) Lumbar spinal stenosis: Neurogenic claudication status: unspecified Qualified Code(s): M48.061 - Spinal stenosis, lumbar region without neurogenic claudication Plan 1. I have reviewed the lumbar MRI and answered all the patient's questions and concerns. She does have an L4-5 and L5-S1 disc herniation causing significant spinal canal stenosis. 2. We discussed pursuing an L4-L5 vs L5-S1 interlaminar epidural steroid injection tomorrow morning on an outpatient basis. Advised to arrive at the pain clinic at 8AM. Preprocedural instructions were reviewed. Risks and benefits were reviewed and she would like to proceed with the procedure. 3. Recommend outpatient physical therapy. 4. If not improved with epidural steroid injection and physical therapy, she should consider surgical intervention. History of Present Illness Reason for Consultation: Lumbar pain Attending Physician: Heraclio Edgar MD History of Present Illness This is a 20-year-old female that has been seen in consultation at the [facility] for acute lumbar pain. She states that the pain has significantly worsened over the last month or so without any specific injury. Pain is located along the lumbosacral junction and then intermittent jolting down the left greater than right leg to the foot. Radicular symptoms are typically running along the lateral and posterior legs. Since she has been initiated on oral steroids, she states that the radicular symptoms have been improving and the pain is currently 90% axial. Pain is aggravated with standing and walking, improved with sitting and laying supine. Pain is rated 4/10 at its best and 8/10 at its worst. She does report significant weakness into the legs and is only able to ambulate for short periods of time. She has been evaluated by Dr. Flores and they discussed pursuing interventional procedures and medications prior to consideration of surgery. No bowel/bladder incontinence, saddle anesthesia, falls. She is having difficulty dorsiflexing her feet. Case discussed with Dr. Stephanie Roberson Allergies Allergy/AdvReac Type Severity Reaction Status Date / Time blue dye Allergy Severe Anaphylaxis Verified 03/08/25 02:26 (paez rodríguez cereal) Home Medications Medication Instructions Recorded Confirmed Type L Heel lift #3 ea 07/19/20 05/10/23 Rx multivitamin 1 tab PO DAILY 01/10/23 03/08/25 History Lactobacillus acidophilus 10 10,000 mmu cells PO DAILY 03/08/25 03/08/25 History billion cell capsule (Probiotic) biotin 10 mg tablet 10 mg PO DAILY 03/08/25 03/08/25 History hydroxyzine HCl 25 mg tablet 25 mg PO HS PRN Insomnia 03/08/25 03/08/25 History lysine 500 mg tablet (L-Lysine) 500 mg PO DAILY 03/08/25 03/08/25 History metformin 500 mg tablet 500 mg PO DAILY 03/08/25 03/08/25 History cyclobenzaprine 5 mg tablet 5 mg PO TID PRN muscle spasm #90 03/09/25 Rx tabs Patient History Medical History Vitamin D deficiency Panic attacks Lipoprotein deficiency HDL low in May 2019 Hypertriglyceridemia Animal dander allergy BMI (body mass index), pediatric, greater than 99% for age Elevated fasting insulin level with normal glucose Lumbar back pain with radiculopathy affecting right lower extremity Surgical History No history of previous surgery Family History Father Heart disease Myocardial infarction Mother Anxiety Diabetes type 2 DM Family/Other Heart disease Cousin, passed at age 33 Denies family history of Ovarian cancer Prostate cancer Breast cancer Colorectal cancer Social History Smoking Status: Former smoker Tobacco Type: Cigarettes Second Hand Exposure: No; Do You Dip or Chew Tobacco: No; Hx Alcohol Use: Yes Alcohol type: beer, wine and hard liquor Hx Substance Use: No Preferred Language: [place] Communication Ability: Effective Visual Impairment: No Limitations Hearing Ability: Normal 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 Speech and cognition is intact. Mood and affect is appropriate. HEAD: Normocephalic; atraumatic. EYES: No conjunctival injection. EOM intact. ENT: No external ear discharge or lesions. No rhinorrhea or epistaxis. Moist oral mucosa. NECK: Full ROM; trachea is midline. CHEST: Regular chest respiration and excursion. LOWER EXTREMITIES: Positive straight leg raise at 30 degrees on the left, negative on the right. R Hip flexion +4; hip extension +4; knee extension +4; knee flexion +4; dorsiflexion +3; plantar flexion +4 L Hip flexion +4; hip extension +4; knee extension +4; knee flexion +4; dorsiflexion +3; plantar flexion +4 NEURO: Awake, alert, and oriented x 3. Distal sensation of lower legs intact and equal bilaterally. BACK: Limited range of motion in all planes due to body habitus. No midline or facet tenderness. Mild lumbosacral tenderness. No SI joint tenderness. No myofascial spasm or trigger points noted. SKIN: No lesions, erythema, or rashes noted. Results (Pain Clinic) Diagnostic Review MRI Findings: Exam(s): MRI L SPINE Without Contrast EXAM: MR Lumbar Spine Without Intravenous Contrast CLINICAL HISTORY: Reason for exam: Low back pain, weakness/numbness L>R legs, abn CT. TECHNIQUE: Magnetic resonance images of the lumbar spine without intravenous contrast in multiple planes. COMPARISON: Prior CT scan of lumbar spine from March 07, 2025. FINDINGS: Vertebrae: There are 5 lumbar type vertebral bodies with a mild levoscoliosis and shallow lumbar lordosis. There is no vertebral body height and alignment. The bone marrow signal is heterogeneous with reactive endplate changes. No acute fracture. Spinal cord: The conus is normal size, shape and signal characteristics, terminating at T12-L1. Soft tissues: Moderate atrophy of the iliopsoas, paraspinous or spinous musculature. The aorta and IVC flow voids are intact. The visualized kidneys are unremarkable. DISCS/SPINAL CANAL/NEURAL FORAMINA: L1-L2: Unremarkable. No significant disc disease. No stenosis. L2-L3: Unremarkable. No significant disc disease. No stenosis. L3-L4: Unremarkable. No significant disc disease. No stenosis. L4-L5: Moderate disc degeneration with right paracentral caudally dissecting disc extrusion measuring 9.9 mm (CC) by 11.4 mm (mL) by 5.7 mm (AP) causing moderate right and mild left subarticular recess stenosis with mild impingement of the transiting right L5 nerve root and the severe spinal stenosis with thecal sac area measuring 0.4 cm². L5-S1: Moderate disc degeneration with annular disc bulge causing mild right and moderate left subarticular recess stenosis with mild impingement of the transiting left S1 nerve. There is disc and osteophyte extend to the neuroforamina causing a mild right stenosis without evidence of impingement. IMPRESSION: 1. Moderate disc degeneration at L4-5 and L5-S1 with disc extrusion or disc bulge causing a moderate right and mild left subarticular recess stenosis at L4-5 and a mild right and moderate left subarticular recess stenosis L5-S1 with mild impingement of the transiting right L5 and left S1 nerve roots respectively. 2. There is a severe spinal canal stenosis at L4-5. 3. There is a mild right L5-S1 foraminal stenosis without evidence of neural impingement. 4. No evidence of fracture, infection, tumor or arachnoiditis. Electronically signed by: Erlinda Jerome MD 03/07/25 22:46 PM Dictated: 03/07/25 [id number] Transcribed: 03/07/25 [id number]
--- NOTE | 2025-03-09 11:17 | Discharge Summary ---
Date of Service March 09, 2025 Admission HPI Per Admitting Provider Laura Keller is a pleasant 20yo female with history of chronic lumbar back pain presenting with acute on chronic back pain. Patient reports over the last week she has had progressive worsening of her lumbar pain - pain radiates down her posterior legs bilaterally. She has also had progressive weakness of her bilateral LE. No fever, chills, falls or trauma. No bowel or bladder complaints. No additional complaints at this time -patient denies fever, chills, chest pain, cough, SOB, abdominal pain, nausea, vomiting, diarrhea ER Course: NSS x 1L Tylenol 1gm Dexamethasone 10mg IV Valium 5mg IV Toradol 15mg IV Specialty Data Hospitalist Discharge diagnosis: Acute on chronic back pain with b/l leg weakness Discharge assessment: Vital Signs Temp Pulse Resp BP Pulse Ox O2 Del Method 03/09/25 07:09 36.6 C 71 16 140/90 96 Room Air 03/08/25 20:15 36.6 C 66 16 121/69 97 Room Air 03/08/25 14:13 36.6 C 73 16 147/74 H 94 Room Air GENERAL: 20 yo morbidly obese WF. A&O x4. Pleasant and cooperative, no distress. LUNGS: Clear to auscultation bilaterally. No W/R/R. CARDIOVASCULAR: Regular rate and rhythm. EXTREMITIES: No edema. Non-tender. Peripheral pulses +2/4. NEUROLOGIC: B/L LE weakness, L>R. Sensation intact and equal b/l. Discharge Data Consultations 03/08/25 00:52 ED Decision to Admit Stat 03/08/25 00:59 Consult Orthopedic Spine Surgery Routine 03/08/25 10:38 Consult Pain Management Routine 03/09/25 11:02 Burn CD for patient Routine Procedures Performed Lumbar Spine CT 03/07/25 16:53 Clinical history: Pain Technique: Axial computed tomography images were obtained of the lumbar spine without intravenous contrast. Sagittal and coronal reconstructions were obtained Findings: No fracture is identified. No listhesis is seen. No focal osseous lesion is evident. There is no definite sign of osteomyelitis At L1-2, no disc herniation is identified. There is no spinal stenosis. The neural foramen are patent At L2-3, no disc herniation is identified. There is no spinal stenosis. The neural foramen are patent At L3-4, there is a mild disc bulge. There is no spinal stenosis. The neural foramen are patent At L4-5, there is severe spinal stenosis due to a disc bulge and a central disc herniation. There is mild left neural foramen narrowing At L5-S1, there is spinal stenosis due to a disc bulge and a central disc herniation. There is mild left neural foramen narrowing The visualized soft tissues of the abdomen and pelvis appear unremarkable Impression: 1. No definite lumbar spine fracture 2. Spinal stenosis at L4-5 and L5-S1 with disc herniations that may compress the traversing nerve roots Electronically signed by Christiano Fonseca 03-07-2025 5:43 PM Lumbar Spine MRI 03/07/25 18:25 Exam(s): MRI L SPINE Without Contrast EXAM: MR Lumbar Spine Without Intravenous Contrast CLINICAL HISTORY: Reason for exam: Low back pain, weakness/numbness L>R legs, abn CT. TECHNIQUE: Magnetic resonance images of the lumbar spine without intravenous contrast in multiple planes. COMPARISON: Prior CT scan of lumbar spine from March 07, 2025. FINDINGS: Vertebrae: There are 5 lumbar type vertebral bodies with a mild levoscoliosis and shallow lumbar lordosis. There is no vertebral body height and alignment. The bone marrow signal is heterogeneous with reactive endplate changes. No acute fracture. Spinal cord: The conus is normal size, shape and signal characteristics, terminating at T12-L1. Soft tissues: Moderate atrophy of the iliopsoas, paraspinous or spinous musculature. The aorta and IVC flow voids are intact. The visualized kidneys are unremarkable. DISCS/SPINAL CANAL/NEURAL FORAMINA: L1-L2: Unremarkable. No significant disc disease. No stenosis. L2-L3: Unremarkable. No significant disc disease. No stenosis. L3-L4: Unremarkable. No significant disc disease. No stenosis. L4-L5: Moderate disc degeneration with right paracentral caudally dissecting disc extrusion measuring 9.9 mm (CC) by 11.4 mm (mL) by 5.7 mm (AP) causing moderate right and mild left subarticular recess stenosis with mild impingement of the transiting right L5 nerve root and the severe spinal stenosis with thecal sac area measuring 0.4 cm². L5-S1: Moderate disc degeneration with annular disc bulge causing mild right and moderate left subarticular recess stenosis with mild impingement of the transiting left S1 nerve. There is disc and osteophyte extend to the neuroforamina causing a mild right stenosis without evidence of impingement. IMPRESSION: 1. Moderate disc degeneration at L4-5 and L5-S1 with disc extrusion or disc bulge causing a moderate right and mild left subarticular recess stenosis at L4-5 and a mild right and moderate left subarticular recess stenosis L5-S1 with mild impingement of the transiting right L5 and left S1 nerve roots respectively. 2. There is a severe spinal canal stenosis at L4-5. 3. There is a mild right L5-S1 foraminal stenosis without evidence of neural impingement. 4. No evidence of fracture, infection, tumor or arachnoiditis. Electronically signed by: Erlinda Jerome MD 03/07/25 22:46 PM Hospital Course (1) Acute on chronic back pain: (2) Bulging lumbar disc: Plan 20yo female with history of chronic low back pain presenting with one week of worsening pain and bilateral LE weakness. Found with moderate disc degeneration at L4-L5 and L5-S1 with disc extrusion causing stenosis. Was given diazepam 5mg, toradol 15mg, dexamethasone 10mg IM x 1 in ER along with 1gm APAP #Acute on chronic low back pain with bulging lumbar discs with nerve root impingement -Observation to medical -Tylenol 1gm po TID -Toradol 15mg IV q 6 hours PRN -Heat -Flexeril 5mg po TID -Dexamethasone 10mg IV daily - patient with elevated glucose, would try to limit lifetime/cumulative exposure to steroids as able -Bladder scan with straight cath as needed for retention -Bowel regimen PRN -Pepcid 10mg po daily for now while on steroids, Toradol -PT/OT evaluations appreciated -Ortho-Spine consultation appreciated - Checking UA for completeness Continues to have weakness to b/l LE. Reports ongoing x 4 yrs, acutely worsening beginning of this week. 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 [facility] evaluated patient on 03/08, recommended conservative measures and pain management consult. Pain management evaluated patient and recommended outpatient injection. They will call patient to set up appointment. Will need f/u with outpatient PT after pain management appointment. PCP f/u advised within 1 week or sooner if needed. Plan d/w Dr. Edgar who is in agreement. Total time for discharge: 35 minutes Supervising Physician Co-Signing Physician Notes The patient was not seen by me. The chart was reviewed. Case discussed with FRANCESCO Vazquez. Agree with assessment and plan Coding Level of Care Code 18183 INP/OBS DISCH >30 MIN Diagnoses Acute on chronic back pain M54.9; G89.29 Bulging lumbar disc M51.369
== END 2025-03-09 13:08 | disposition home or self-care (01) ==
LOC: 3E 15:39 → ED 15:39 → SUATTDRO 03-08 00:59 → 3E 03-08 01:56
DX: M51.16 Intervertebral disc disorders with radiculopathy, lumbar region; Z88.8 Allergy status to other drugs, medicaments and biological substances; Z79.899 Other long term (current) drug therapy; Z79.84 Long term (current) use of oral hypoglycemic drugs; M54.16 Radiculopathy, lumbar region; Z87.891 Personal history of nicotine dependence; G89.29 Other chronic pain; M51.369 Other intervertebral disc degeneration, lumbar region without mention of lumbar back pain or lower extremity pain